=== PATIENT | male | born 1995 | race American Indian/Alaskan Native ===

== ENCOUNTER 2017-10-11 08:29 | Emergency (ER) | payer OTHER ==
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
[2017-10-11 09:19] LABS: Basophils % (Auto) 0.4 % (0.0-1.8); Eosinophils % (Auto) 0.3 % (0.0-4.3); Hemoglobin 13.5 gm/dl (11.8-15.2); Lymphocytes % (Auto) 17.8 % (13.4-35.0); Mean Corpuscular HGB Conc 34 % (32-34); Mean Corpuscular Hemoglobin 31 pg (28-32); Mean Corpuscular Volume 91 fl (84-94); Monocytes # (Auto) 0.4 K/mm3 (0.0-0.8); Monocytes % (Auto) 7.3 % (0.0-7.3); Platelet Count 206 K/mm3 (140-440); Red Cell Distribution Width 14.1 % (13.2-15.2)
[2017-10-11 09:35] LABS: BUN/Creatinine Ratio 15; Blood Urea Nitrogen 12 mg/dL (9-20); Calcium 9.2 mg/dL (8.4-10.2); Hemolysis Index 14
--- NOTE | 2017-10-11 09:41 | Cat Scan Report ---
CT HEAD WITHOUT CONTRAST INDICATION: Possible seizure. COMPARISON: None similar at this institution. FINDINGS: Noncontrast head CT demonstrates an approximately 4 x 2.5 cm left frontal lobe encephalomalacia. No acute infarct, hemorrhage, mass effect or midline shift. Normal ventricles and sulci. No abnormal extra axial fluid collections. Normal posterior fossa with preserved basilar cisterns. Unremarkable eye globes. Slight rightward nasal septal bowing maybe partially imaged. Clear paranasal sinuses and mastoid air cells. Right more than left external auditory canal debris may be directly visualized. Intact calvarium. Normal scalp. CONCLUSION: No acute intracranial CT abnormality with left frontal lobe encephalomalacia and few other incidental findings, as above. Please correlate. Thank you for the opportunity to participate in this patient's care.
[2017-10-11] MEDS ORDERED: KEPPRA 1,000 MG/NS 0.75% 100ML 1,000 MG/100 ML BAG IV ONE (10:48)
[2017-10-11 11:38] LABS: Amphetamine Screen,Urine PRESUMPTIVE NEGATIVE; Benzodiazepines Screen,Urine PRESUMPTIVE NEGATIVE; Cannabinoid Screen,Urine PRESUMPTIVE NEGATIVE; Cocaine Screen,Urine PRESUMPTIVE NEGATIVE; Methadone Screen,Urine PRESUMPTIVE NEGATIVE; Opiate Screen,Urine PRESUMPTIVE NEGATIVE
[2017-10-11 15:04] VITALS: BP 118/78
== END 2017-10-11 13:10 | disposition home or self-care (01) ==
LOC: ED 08:29
DX: G40.89 Other seizures (principal)
CPT/HCPCS: 36415; 70450; 80048; 80307; 82550; 82962; 83735; 85025; 93005; 93010; 96365; 99284; J1953

== ENCOUNTER 2022-01-26 14:55 | Emergency (ER) | payer SELFPAY ==
--- NOTE | 2022-01-26 18:21 | XRay Report ---
CERVICAL SPINE 5 VIEWS INDICATION / CLINICAL INFORMATION: neck pain. COMPARISON: None available. FINDINGS: VERTEBRAE: No acute fracture. No significant malalignment. DISC SPACES / FACET JOINTS:No significant abnormality. PARASPINAL SOFT TISSUES:No significant abnormality. ADDITIONAL FINDINGS: None. Signer Name: Kennedy Wilson DO Signed: 01/26/2022 6:16 PM Workstation Name: [id number]
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
[2022-01-26] MEDS ORDERED: oxyCODONE /ACETAMINOPHEN 5-325MG TAB PO ONE (18:51)
[2022-01-26 19:18] VITALS: BP 108/80
== END 2022-01-26 19:10 | disposition home or self-care (01) ==
LOC: ED 14:55
DX: S16.1XXA Strain of muscle, fascia and tendon at neck level, initial encounter (principal); M62.838 Other muscle spasm; Y99.8 Other external cause status; W19.XXXA Unspecified fall, initial encounter; Y93.89 Activity, other specified; Y92.89 Other specified places as the place of occurrence of the external cause; F17.200 Nicotine dependence, unspecified, uncomplicated
CPT/HCPCS: 72040; 99283